=== PATIENT | female | born 1995 | race Caucasian/White ===

== ENCOUNTER 2018-01-31 22:14 | Emergency (ER) | payer OTHER ==
[~2018-01-31] VITALS: Ht 175.3 cm; Wt 136.1 kg
[~2018-01-31 22:14] MED LIST: ABILIFY; ACETAMINOPHEN-1 EAC1 PO; ADDERALL; ALBUTEROL INHAL17 GM IH; ALBUTEROL2.5 MG/31 INH; AMITRIPTYLINE H25 M2 PO; AMOXICILLIN 50500 M1 PO; AMOXICILLIN 50500 MG PO; AMOXICILLIN875 MG PO; ANAPROX DS550 MG PO; BACTRIM DS TAB1 EACH PO; BACTROBAN22 GM TP; CEPHALEXIN 500500 M2 PO; CIPRO250 M1 PO; CLARITIN10 M2 PO; CLARITIN10 MG PO; DOXYCYCLINE 10100 MG PO; FLAGYL500 MG PO; FLEXERIL PO; FLONASE 0.05%50 MCG NASAL; FLOVENT HFA 1110 MCG IH; FLOVENT HFA 1110 MCG INH; GLUCOPHAGE1000 MG PO; HYDROCORTISONE OT; IBUPROFEN 600600 M1 PO; IBUPROFEN 800800 M1 PO; KEFLEX500 MG PO; LIDODERM 5%1 PATC1 TRANSDERM; LORATIDINE 10 M10 M1 PO; LUTERA1 EACH PO; MECLIZINE HCL25 M1 PO; MEDROLDOSEPACK PO; METFORMIN HCL1000 M1 PO; MUCINEX600 MG PO; NEOMYCIN OT; NORCO 5-325 TA1 EACH PO; NUVARING VAGIN1 EACH VG; OMEPRAZOLE; ONDANSETRON HCL4 M2 PO; PEPCID AC20 M1 PO; PERCOCET; PHENERGAN 25 MG25 M1; PHENERGAN 25 MG25 M1 PO; POLYMYXIN B OT; PREDNISONE 10 M10 M1 PO; RANITIDINE HCL300 M1 PO; ROBAXIN500 MG PO; SINGULAIR 10 MG10 M1 PO; SYMBICORT80 MCG/4.1 INH; TOPAMAX; TOPAMAX100 MG PO; TOPIRAGEN100 MG PO; TRAMADOL 50 MG50 MG PO; VENTOLIN HFA INH8 GM INH; VISTARIL 25 MG25 M1 PO; ZANTAC 150MG T150 M1 PO; [UNRECOGNIZED DRUG - REMARK] PO
[2018-01-31] MEDS ORDERED: SEROQUEL 50 MG50 M1 (22:35)
[2018-01-31] MEDS ORDERED: CYMBALTA20 MG (22:35)
[2018-01-31 22:58] LABS: URINE BILIRUBIN NEGATIVE (Negative); URINE BLOOD 2+ (Negative); URINE CLARITY CLEAR; URINE COLOR YELLOW; URINE GLUCOSE-RANDOM NEGATIVE (Negative); URINE KETONES NEGATIVE (Negative); URINE LEUKOCYTES-REFLEX NEGATIVE (Negative); URINE NITRITE-REFLEX NEGATIVE (Negative); URINE PROTEIN NEGATIVE (Negative); URINE SPECIFIC GRAVITY >= 1.030 (1.005-1.030); URINE UROBILINOGEN 0.2 E.U./dl (0.2-1.0)
[2018-01-31 23:07] LABS: BACTERIA-REFLEX None Seen /HPF (None Seen); CASTS None Seen /LPF (None Seen); CRYSTALS None Seen /LPF (None Seen); SQUAMOUS 4-10 Moderate /LPF (0-3); URINE RBC 0-2 Rare /HPF (0-2); URINE WBC-REFLEX None Seen /HPF (0-5)
[2018-01-31] MEDS ORDERED: DOXYCYCLINE 10100 M1 PO (23:42)
[2018-02-01 00:04] VITALS: BP 132/74
== END 2018-02-01 00:04 | disposition home or self-care (01) ==
LOC: M.ERS 22:14
PROVIDERS: Nurse Practitioner Family
DX: Z20.2 Contact with and (suspected) exposure to infections with a predominantly sexual mode of transmission (principal); J45.909 Unspecified asthma, uncomplicated; F90.9 Attention-deficit hyperactivity disorder, unspecified type; F41.9 Anxiety disorder, unspecified; E78.5 Hyperlipidemia, unspecified; K21.9 Gastro-esophageal reflux disease without esophagitis; E28.2 Polycystic ovarian syndrome; G43.909 Migraine, unspecified, not intractable, without status migrainosus; Z88.2 Allergy status to sulfonamides; Z88.1 Allergy status to other antibiotic agents; Z88.8 Allergy status to other drugs, medicaments and biological substances

== ENCOUNTER 2018-06-22 15:31 | Emergency (ER) | payer OTHER ==
[~2018-06-22] VITALS: Ht 175.3 cm; Wt 149.7 kg
[~2018-06-22 15:31] MED LIST changes: +CYMBALTA20 MG; +DOXYCYCLINE 10100 M1 PO; +SEROQUEL 50 MG50 M1
[2018-06-22 16:54] LABS: URINE BILIRUBIN NEGATIVE (Negative); URINE BLOOD NEGATIVE (Negative); URINE CLARITY CLEAR; URINE COLOR YELLOW; URINE GLUCOSE-RANDOM NEGATIVE (Negative); URINE KETONES NEGATIVE (Negative); URINE LEUKOCYTES-REFLEX NEGATIVE (Negative); URINE NITRITE-REFLEX NEGATIVE (Negative); URINE PROTEIN NEGATIVE (Negative); URINE SPECIFIC GRAVITY >= 1.030 (1.005-1.030); URINE UROBILINOGEN 0.2 E.U./dl (0.2-1.0)
[2018-06-22] MEDS ORDERED: NORFLEX100 MG PO (18:02)
[2018-06-22] MEDS ORDERED: ULTRACET TABLET1 TAB PO (18:04)
[2018-06-22 18:27] VITALS: BP 122/83
== END 2018-06-22 18:28 | disposition home or self-care (01) ==
LOC: M.ERS 15:31
PROVIDERS: Nurse Practitioner
DX: M54.41 Lumbago with sciatica, right side (principal); J45.909 Unspecified asthma, uncomplicated; G43.909 Migraine, unspecified, not intractable, without status migrainosus; F90.9 Attention-deficit hyperactivity disorder, unspecified type; F41.9 Anxiety disorder, unspecified; E78.5 Hyperlipidemia, unspecified; K21.9 Gastro-esophageal reflux disease without esophagitis; E28.2 Polycystic ovarian syndrome; Z88.8 Allergy status to other drugs, medicaments and biological substances; Z88.1 Allergy status to other antibiotic agents; Z88.2 Allergy status to sulfonamides

== ENCOUNTER 2019-07-24 22:02 | Emergency (ER) | payer OTHER ==
[~2019-07-24] VITALS: Ht 175.3 cm; Wt 154.2 kg
[~2019-07-24 22:02] MED LIST changes: +NORFLEX100 MG PO; +ULTRACET TABLET1 TAB PO; +ULTRAM50 MG PO
[2019-07-24] MEDS ORDERED: ANTIDEPRESSANT (22:12)
[2019-07-24] MEDS ORDERED: CYMBALTA30 MG PO (22:12)
[2019-07-24 22:49] VITALS: BP 151/97
== END 2019-07-24 22:12 | disposition home or self-care (01) ==
LOC: M.ERS 22:02
DX: S51.812A Laceration without foreign body of left forearm, initial encounter (principal); J45.909 Unspecified asthma, uncomplicated; G43.909 Migraine, unspecified, not intractable, without status migrainosus; K21.9 Gastro-esophageal reflux disease without esophagitis; E78.5 Hyperlipidemia, unspecified; F17.210 Nicotine dependence, cigarettes, uncomplicated; Z88.1 Allergy status to other antibiotic agents; Z88.2 Allergy status to sulfonamides; Z88.8 Allergy status to other drugs, medicaments and biological substances; W01.0XXA Fall on same level from slipping, tripping and stumbling without subsequent striking against object, initial encounter; Y93.89 Activity, other specified; Y92.89 Other specified places as the place of occurrence of the external cause; Y99.8 Other external cause status

== ENCOUNTER 2021-01-05 16:05 | Emergency (ER) | payer OTHER ==
[~2021-01-05] VITALS: Ht 175.3 cm; Wt 192.8 kg
[~2021-01-05 16:05] MED LIST changes: +ANTIDEPRESSANT; +CYMBALTA30 MG PO
[2021-01-05 16:16] VITALS: BP 173/96
[2021-01-05 16:22] LABS: URINE BILIRUBIN NEGATIVE (Negative); URINE BLOOD NEGATIVE (Negative); URINE COLOR YELLOW; URINE GLUCOSE-RANDOM NEGATIVE (Negative); URINE KETONES NEGATIVE (Negative); URINE LEUKOCYTES-REFLEX NEGATIVE (Negative); URINE NITRITE-REFLEX POSITIVE (Negative); URINE PROTEIN NEGATIVE (Negative); URINE UROBILINOGEN 0.2 E.U./dl (0.2-1.0)
[2021-01-05 16:23] LABS: URINE CLARITY HAZY
[2021-01-05] MEDS ORDERED: CEPHALEXIN500 MG PO (16:29)
[2021-01-05 16:35] LABS: BACTERIA-REFLEX >30 Many /HPF (None Seen); CASTS None Seen /LPF (None Seen); CRYSTALS None Seen /LPF (None Seen); SQUAMOUS 4-10 Moderate /LPF (0-3); URINE RBC None Seen /HPF (0-2); URINE WBC-REFLEX 0-5 Rare /HPF (0-5)
== END 2021-01-05 16:43 | disposition home or self-care (01) ==
LOC: M.ERS 16:05
PROVIDERS: Physician Assistant
DX: N39.0 Urinary tract infection, site not specified (principal); J45.909 Unspecified asthma, uncomplicated; G43.909 Migraine, unspecified, not intractable, without status migrainosus; Z88.1 Allergy status to other antibiotic agents; Z88.2 Allergy status to sulfonamides; Z88.8 Allergy status to other drugs, medicaments and biological substances

== ENCOUNTER 2021-01-23 08:02 | Emergency (ER) | payer OTHER ==
[~2021-01-23] VITALS: Ht 175.3 cm; Wt 181.4 kg
[~2021-01-23 08:02] MED LIST changes: +CEPHALEXIN500 MG PO
[2021-01-23] MEDS ORDERED: FLEXERIL PO (09:35)
[2021-01-23] MEDS ORDERED: HYDROCODON-ACE1 EAC7 PO (09:35)
[2021-01-23 09:42] VITALS: BP 126/78
== END 2021-01-23 09:44 | disposition home or self-care (01) ==
LOC: M.ERS 08:02
DX: R07.81 Pleurodynia (principal); J45.909 Unspecified asthma, uncomplicated; E78.5 Hyperlipidemia, unspecified; K21.9 Gastro-esophageal reflux disease without esophagitis; Z88.1 Allergy status to other antibiotic agents; Z88.2 Allergy status to sulfonamides; Z88.8 Allergy status to other drugs, medicaments and biological substances

== ENCOUNTER 2021-03-17 14:07 | Emergency (ER) | payer OTHER ==
[~2021-03-17] VITALS: Ht 175.3 cm; Wt 181.4 kg
[~2021-03-17 14:07] MED LIST changes: +HYDROCODON-ACE1 EAC7 PO
[2021-03-17 15:51] VITALS: BP 162/105
== END 2021-03-17 15:44 | disposition home or self-care (01) ==
LOC: M.ERS 14:07
DX: Z20.822 Contact with and (suspected) exposure to COVID-19 (principal); J45.909 Unspecified asthma, uncomplicated; G43.909 Migraine, unspecified, not intractable, without status migrainosus; F90.9 Attention-deficit hyperactivity disorder, unspecified type; E78.5 Hyperlipidemia, unspecified; K21.9 Gastro-esophageal reflux disease without esophagitis; Z87.42 Personal history of other diseases of the female genital tract; Z79.899 Other long term (current) drug therapy; Z88.1 Allergy status to other antibiotic agents; Z88.6 Allergy status to analgesic agent; Z88.2 Allergy status to sulfonamides

== ENCOUNTER 2021-06-22 13:56 | Emergency (ER) | payer OTHER ==
[~2021-06-22] VITALS: Ht 175.3 cm; Wt 158.8 kg
[2021-06-22 15:40] VITALS: BP 146/93
== END 2021-06-22 15:40 | disposition home or self-care (01) ==
LOC: M.ERS 13:56
DX: R51.9 Headache, unspecified (principal); J45.909 Unspecified asthma, uncomplicated; F90.9 Attention-deficit hyperactivity disorder, unspecified type; F41.9 Anxiety disorder, unspecified; K21.9 Gastro-esophageal reflux disease without esophagitis; F17.210 Nicotine dependence, cigarettes, uncomplicated; Z79.899 Other long term (current) drug therapy; Z88.0 Allergy status to penicillin; Z88.2 Allergy status to sulfonamides; Z88.8 Allergy status to other drugs, medicaments and biological substances